=== PATIENT | female | born 2000 | race African-American/Black ===

== ENCOUNTER 2023-11-08 17:06 | Emergency (ER) | payer MEDICAID ==
[~2023-11-08] VITALS: Ht 157.5 cm; Wt 82.0 kg
[2023-11-08 17:13] VITALS: BP 102/69; PULSE 90; RESP 18; TEMP 98.8; O2SAT 98
[2023-11-08 17:54] LABS: CLARITY URINE CLOUDY (CLEAR); COLOR URINE DARK YELLOW (YELLOW); GLUCOSE URINE NEGATIVE (NEGATIVE); KETONES URINE TRACE (NEGATIVE); LEUKOCYTE ESTERASE URINE 2+ (NEGATIVE); NITRITE URINE POSITIVE (NEGATIVE); OCCULT BLOOD URINE 1+ (NEGATIVE); PH URINE 6.5 (4.5-8.0); PROTEIN URINE TRACE (NEGATIVE); SPECIFIC GRAVITY URINE 1.021 (1.005-1.030)
[2023-11-08 18:16] LABS: BACTERIA URINE 3+; RBC URINE 0-2 /hpf (0-2); SQUAMOUS EPITHELIAL CELL URINE 1+ /lpf (RARE/1+)
[2023-11-08] MEDS ORDERED: CEFTRIAXONE SODIUM 500MG VIAL IM ONE (18:45)
[2023-11-08] MEDS ORDERED: LIDOCAINE HCL 1% 20ML VIAL (Pyxis) INJ INFIL ONE (18:45)
[2023-11-08] MEDS ORDERED: DOXY100C5 MT (19:08)
[2023-11-08] MEDS ORDERED: METR-167 MT (19:08)
[2023-11-08] MEDS ORDERED: MED4 MT (19:08)
[2023-11-12 05:07] LABS: CHLAMYDIA TRACHOMATIS NAA Negative (Negative); NEISSERIA GONORRHOEAE NAA Negative (Negative)
== END 2023-11-08 19:36 | disposition home or self-care (01) ==
LOC: ER 17:06
DX: J02.9 Acute pharyngitis, unspecified (principal); N76.0 Acute vaginitis
CPT/HCPCS: 99283; 87491; 87591; 81003; 81025; 96372; J0696; J3490